=== PATIENT | male | born 1975 | race Caucasian/White ===

== ENCOUNTER 2024-10-08 06:18 | Day surgery (SDC) | payer BC, SELFPAY ==
[2024-10-08] VITALS (21 sets, daily range): BP systolic 110–145; BP diastolic 49–80; BMI 29.7
[2024-10-08] MEDS: ZOFRAN 4 MG IV (14:27)
[2024-10-08] MEDS: VENTOLIN NEBULES 2.5 MG INH (15:08)
[2024-10-08] MEDS: ROXICODONE 5 MG PO (16:43)
== END 2024-10-08 17:17 | disposition home or self-care (01) ==
LOC: SDS 06:18
PROVIDERS: ATTENDING PHYSICIAN Otolaryngology
DX: G47.33 Obstructive sleep apnea (adult) (pediatric) (principal); E66.9 Obesity, unspecified; Z68.29 Body mass index [BMI] 29.0-29.9, adult
CPT/HCPCS: 64582; 94640; C1767; C1778; C1787

== ENCOUNTER → 2025-03-18 10:48 | Outpatient (REF) | payer BC, SELFPAY | LOC: DHSLP 10:48 | PROVIDERS: ATTENDING PHYSICIAN Internal Medicine; FAMILY PHYSICIAN Family Medicine | DX: G47.33 Obstructive sleep apnea (adult) (pediatric) (principal); G47.31 Primary central sleep apnea | CPT/HCPCS: 95810 ==

== ENCOUNTER 2025-03-25 06:16 | Day surgery (SDC) | payer BC, SELFPAY ==
[2025-03-25] VITALS (7 sets, daily range): BP systolic 120–160; BP diastolic 72–90; BMI 28.7
[2025-03-25] MEDS: NORMOSOL-R/PLASMALYTE-A 1000 IV (10:09)
[2025-03-25] MEDS: TYLENOL 1000 MG PO (11:58)
[2025-03-25] MEDS: ROXICODONE 5 MG PO (16:05)
== END 2025-03-25 16:45 | disposition home or self-care (01) ==
LOC: SDS 06:16
PROVIDERS: ATTENDING PHYSICIAN Otolaryngology; FAMILY PHYSICIAN Family Medicine
DX: J38.3 Other diseases of vocal cords (principal); L90.5 Scar conditions and fibrosis of skin
CPT/HCPCS: 31541; 31536; 11400; 88305

== ENCOUNTER → 2025-07-08 07:37 | Outpatient (REF) | payer BC, SELFPAY | LOC: DHSLP 07:37 | PROVIDERS: ATTENDING PHYSICIAN Internal Medicine; FAMILY PHYSICIAN Family Medicine | DX: G47.33 Obstructive sleep apnea (adult) (pediatric) (principal); R09.02 Hypoxemia | CPT/HCPCS: 95800 ==